=== PATIENT | male | born 1950 | race American Indian/Alaskan Native ===

== ENCOUNTER 2017-10-27 22:01 | Emergency (ER) | payer MEDICARE ==
[2017-10-27 23:08] VITALS: BMI 28.5
[2017-10-27 23:19] VITALS: BP 126/79; PULSE 94; RESP 18; TEMP 97.9; O2SAT 98
--- NOTE | 2017-10-28 00:06 | ED PDOC ---
Arrival/HPI - General Chief Complaint: ENT Problem Time Seen by Provider: 10/27/17 23:28 Historian: Patient - History of Present Illness Narrative History of Present Illness (Text): 10/28/17 00:01 Tobi Thayer is a 66 year old male, whose past medical history includes hypertension, Hepatitis C, and CHF, who presents to the Emergency department complaining of epistaxis. Patient states he had an episode of epistaxis while driving in his car tonight and notes this is the 3rd episode he has experienced this week. Patient denies any rhinorrhea, fever, chills, chest pain, shortness of breath, nausea, vomiting, headache, dizziness, or any other complaints. Symptom Onset: Gradual Symptom Course: Unchanged Activities at Onset: Light Context: Home Past Medical History - Provider Review Nursing Documentation Reviewed: Yes - Tetanus Immunization Tetanus Immunization: Unknown - Cardiac Hx Hypertension: Yes - Pulmonary Hx Respiratory Disorders: No - Neurological Hx Neurological Disorder: No - HEENT Hx HEENT Disorder: No - Renal Hx Renal Disorder: No - Endocrine/Metabolic Hx Endocrine Disorders: No - Hematological/Oncological Hx Hepatitis C: Yes - Integumentary Hx Dermatological Disorder: No - Musculoskeletal/Rheumatological Hx Musculoskeletal Disorders: No Hx Arthritis: No - Gastrointestinal Hx Gastrointestinal Disorders: No - Genitourinary/Gynecological Hx Genitourinary Disorders: No - Psychiatric Hx Psychophysiologic Disorder: No Hx Substance Use: No - Anesthesia Hx Anesthesia: No - Suicidal Assessment Feels Threatened In Home Enviroment: No Family/Social History - Physician Review Nursing Documentation Reviewed: Yes Family/Social History: Unknown Family HX Smoking Status: Former Smoker Hx Alcohol Use: No Hx Substance Use: No Allergies/Home Meds Allergies/Adverse Reactions: Allergies No Known Allergies Allergy (Verified 10/27/17 23:08) Home Medications: Home Meds Medication Instructions Recorded Confirmed Enalapril Maleate [Enalapril] 10 mg PO Q12H 12/14/14 10/27/17 Furosemide [Lasix] 20 mg PO DAILY 12/14/14 10/27/17 Metoprolol Succinate 100 mg PO DAILY 12/14/14 10/27/17 Rosuvastatin Calcium [Crestor] 10 mg PO DAILY 12/14/14 10/27/17 Review of Systems - Physician Review All systems were reviewed & negative as marked: Yes - Review of Systems Constitutional: Normal. absent: Fevers Eyes: Normal ENT: Epistaxis Respiratory: Normal. absent: SOB, Cough Cardiovascular: Normal. absent: Chest Pain Gastrointestinal: Normal. absent: Abdominal Pain, Diarrhea, Nausea, Vomiting Genitourinary Male: Normal. absent: Dysuria, Frequency, Hematuria, Urinary Output Changes Musculoskeletal: Normal. absent: Back Pain, Neck Pain Skin: Normal. absent: Rash Neurological: Normal. absent: Headache, Dizziness Endocrine: Normal Hemo/Lymphatic: Normal Psychiatric: Normal Physical Exam Vital Signs Reviewed: Yes Vital Signs Temp Pulse Resp BP Pulse Ox 10/27/17 23:19 97.9 F 94 H 18 126/79 98 Temperature: Afebrile Blood Pressure: Normal Pulse: Regular Respiratory Rate: Normal Appearance: Positive for: Well-Appearing, Non-Toxic, Comfortable Pain Distress: None Mental Status: Positive for: Alert and Oriented X 3 - Systems Exam Head: Present: Atraumatic, Normocephalic Pupils: Present: PERRL Extroacular Muscles: Present: EOMI Conjunctiva: Present: Normal Mouth: Present: Moist Mucous Membranes Nose (External): Present: Atraumatic Nose (Internal): No: No Active Bleeding Neck: Present: Normal Range of Motion Respiratory/Chest: Present: Clear to Auscultation, Good Air Exchange. No: Respiratory Distress, Accessory Muscle Use Cardiovascular: Present: Regular Rate and Rhythm, Normal S1, S2. No: Murmurs Abdomen: Present: Normal Bowel Sounds. No: Tenderness, Distention, Peritoneal Signs Back: Present: Normal Inspection Upper Extremity: Present: Normal Inspection. No: Cyanosis, Edema Lower Extremity: Present: Normal Inspection. No: Edema Neurological: Present: GCS=15, CN II-XII Intact, Speech Normal Skin: Present: Warm, Dry, Normal Color. No: Rashes Psychiatric: Present: Alert, Oriented x 3, Normal Insight, Normal Concentration Medical Decision Making ED Course and Treatment: 10/28/17 00:01 Impression: 66 year old male complaining of epistaxis tonight. Differential Diagnosis included but are not limited to: epistaxis Plan: -- Labs -- Silver Nitrate Cautery -- Reassess and disposition Progress Notes: 10/28/17 01:19 PROCEDURE: EPISTAXIS MANAGEMENT Performed by the emergency provider Consent: Informed consent was obtained after discussion of the risks, benefits, and alternatives to the procedure. Timeout: A timeout to verify the correct patient, procedure, and site was performed immediately prior to the procedure. Indication: Nasal bleeding control Location: left naris Bleeding Source: ANTERIOR Cautery: Silver nitrate Post-procedure: Good hemostasis. The patient was observed following procedure and no repeat episode of bleeding was noted. Patient tolerated the procedure well with no immediate complications. 10/28/17 01:45 On reevaluation the patient feels better and is in no acute distress. I have discussed the results and plan with the patient, who expresses understanding. Patient given the opportunity to ask question, all questions were answered and there is agreement with the plan to discharge the patient home. Patient is stable for discharge. Patient was instructed to follow up with physician/clinic in 1-2 days or return if symptoms persist/worsen or new concerning symptoms arise. - Lab Interpretations Lab Results: 10/28/17 01:13 Lab Results 10/28/17 01:13: PT 11.8, INR 1.03, APTT 27.2 10/28/17 01:13: WBC 8.3 D, RBC 3.41 L, Hgb 11.4 L, Hct 33.7 L, MCV 98.8, MCH 33.4, MCHC 33.8, RDW 13.2, Plt Count 204, MPV 9.5, Gran % 57.9, Lymph % (Auto) 34.5, Crisp % (Auto) 5.8, Eos % (Auto) 1.6, Baso % (Auto) 0.2, Gran # 4.83, Lymph # 2.9, Crisp # 0.5, Eos # 0.1, Baso # 0.02 I have reviewed the lab results: Yes - Medication Orders Current Medication Orders: Discontinued Medications Silver Nitrate (Silver Nitrate Topical Stick) 1 swa TOP ONCE ONE Stop: 10/28/17 00:58 Last Admin: 10/28/17 01:19 Dose: 1 swa - Scribe Statement The provider has reviewed the documentation as recorded by the Scribmaverick Cordero All medical record entries made by the Scribe were at my direction and personally dictated by me. I have reviewed the chart and agree that the record accurately reflects my personal performance of the history, physical exam, medical decision making, and the department course for this patient. I have also personally directed, reviewed, and agree with the discharge instructions and disposition. Disposition/Present on Arrival - Present on Arrival Any Indicators Present on Arrival: No History of DVT/PE: No History of Uncontrolled Diabetes: No Urinary Catheter: No History of Decub. Ulcer: No History Surgical Site Infection Following: None - Disposition Have Diagnosis and Disposition been Completed?: Yes Diagnosis: Epistaxis Disposition: HOME/ ROUTINE Disposition Time: 01:45 Condition: GOOD Discharge Instructions (ExitCare): Nosebleed (ED) Referrals: Anmol Montanez MD [Primary Care Provider] - Follow up with primary Galdino Duffy DO [Staff Provider] - Follow up with primary Forms: [employer] ([place])
[2017-10-28] MEDS ORDERED: Silver Nitrate Topical - Stick TOP ONE (00:57)
[2017-10-28 01:23] LABS: BASO # 0.02 K/mm3 (0.0-2.0); BASO % 0.2 % (0.0-3.0); EOS # 0.1 (0.0-0.7); EOS % 1.6 % (1.5-5.0); GRAN # 4.83 (1.4-6.5); GRAN % 57.9 % (50.0-68.0); HEMOGLOBIN 11.4 g/dL (14.0-18.0); LYMPH # 2.9 (1.2-3.4); LYMPH % 34.5 % (22.0-35.0); MEAN CELL VOLUME 98.8 fl (80.0-105.0); MEAN CORPUSCULAR HEMOGLOBIN 33.4 pg (25.0-35.0); MEAN CORPUSCULAR HGB CONC 33.8 g/dl (31.0-37.0); MEAN PLATELET VOLUME 9.5 fl (7.0-11.0); MONO # 0.5 (0.1-0.6); MONO % 5.8 % (1.0-6.0); RBC 3.41 10^6/uL (3.5-6.1); RED CELL DISTRIBUTION WIDTH 13.2 % (11.5-14.5); WHITE BLOOD COUNT 8.3 10^3/ul (4.5-11.0)
[2017-10-28 01:34] LABS: INR 1.03 (0.93-1.08); PARTIAL THROMBOPLASTIN TIME 27.2 Seconds (25.1-36.5); PROTHROMBIN TIME 11.8 SECONDS (9.4-12.5)
== END 2017-10-28 01:55 | disposition home or self-care (01) ==
LOC: ED 22:01
DX: R04.0 Epistaxis (principal); I10 Essential (primary) hypertension; I50.9 Heart failure, unspecified; Z87.891 Personal history of nicotine dependence

== ENCOUNTER 2018-03-21 00:58 | Observation (INO) | payer MEDICARE ==
[2018-03-21 00:58] VITALS: BMI 28.5
--- NOTE | 2018-03-21 02:49 | ED PDOC ---
Arrival/HPI - General Chief Complaint: Lower Extremity Problem/Injury Time Seen by Provider: 03/21/18 02:44 Historian: Patient - History of Present Illness Narrative History of Present Illness (Text): 03/21/18 02:48 Tobi Thayer is a 67 year old male, whose past medical history includes hypertension, Hepatitis C, and CHF, who presents to the Emergency department complaining of bilateral ankle swelling ,occassional shortness of breath,and vague chest discomfort.Patient denies any fever, chills, nausea, vomiting, diarrhea, back pain, neck pain, headache, dizziness, or any other complaints.No hx. of any trauma. Symptom Onset: Gradual Symptom Course: Unchanged Activities at Onset: Light Context: Home Past Medical History - Provider Review Nursing Documentation Reviewed: Yes - Infectious Disease Hx of Infectious Diseases: None - Tetanus Immunization Tetanus Immunization: Unknown - Cardiac Hx Hypertension: Yes - Pulmonary Hx Respiratory Disorders: No - Neurological Hx Neurological Disorder: No - HEENT Hx HEENT Disorder: No - Renal Hx Renal Disorder: No - Endocrine/Metabolic Hx Endocrine Disorders: No - Hematological/Oncological Hx Hepatitis C: Yes - Integumentary Hx Dermatological Disorder: No - Musculoskeletal/Rheumatological Hx Musculoskeletal Disorders: No Hx Arthritis: No - Gastrointestinal Hx Gastrointestinal Disorders: No - Genitourinary/Gynecological Hx Genitourinary Disorders: No - Psychiatric Hx Psychophysiologic Disorder: No Hx Substance Use: No - Anesthesia Hx Anesthesia: No - Suicidal Assessment Feels Threatened In Home Enviroment: No Family/Social History - Physician Review Nursing Documentation Reviewed: Yes Family/Social History: Unknown Family HX Smoking Status: Former Smoker Hx Alcohol Use: No Hx Substance Use: No Allergies/Home Meds Allergies/Adverse Reactions: Allergies No Known Allergies Allergy (Verified 03/21/18 01:58) Home Medications: Home Meds Medication Instructions Recorded Confirmed Enalapril Maleate [Enalapril] 10 mg PO Q12H 12/14/14 03/22/18 Furosemide [Lasix] 40 mg PO DAILY 12/14/14 03/22/18 Methadone [Methadone HCl] 10 mg PO DAILY 03/21/18 03/22/18 Metoprolol Succinate [Toprol Xl] 100 mg PO DAILY 03/21/18 03/22/18 oxyCODONE [oxyCODONE Immediate 30 mg PO TID 06/15/18 06/16/18 Release Tab] Atorvastatin [Lipitor] 40 mg PO DAILY 03/22/18 03/22/18 Review of Systems - Physician Review All systems were reviewed & negative as marked: Yes - Review of Systems Constitutional: Normal. absent: Fevers Eyes: Normal ENT: Normal Respiratory: SOB. absent: Cough Cardiovascular: Chest Pain Gastrointestinal: Normal. absent: Abdominal Pain, Diarrhea, Nausea, Vomiting Genitourinary Male: Normal. absent: Dysuria, Frequency, Hematuria, Urinary Output Changes Musculoskeletal: Other (+bilateral ankle swelling). absent: Back Pain, Neck Pain Skin: Normal. absent: Rash Neurological: Normal. absent: Headache, Dizziness Endocrine: Normal Hemo/Lymphatic: Normal Psychiatric: Normal Physical Exam Vital Signs Reviewed: Yes Vital Signs Temp Pulse Resp BP Pulse Ox 03/21/18 09:30 109 H 03/21/18 09:27 98.0 F 108 H 15 95 03/21/18 09:26 98.0 F 108 H 15 95 03/21/18 07:47 150/88 03/21/18 07:40 70 150/88 03/21/18 07:29 98.8 F 98 H 17 150/89 97 03/21/18 06:00 88 18 131/75 99 03/21/18 04:42 95 H 18 136/72 97 03/21/18 01:55 112 H 18 133/73 95 Temperature: Afebrile Blood Pressure: Normal Pulse: Regular Respiratory Rate: Normal Appearance: Positive for: Well-Appearing, Non-Toxic, Comfortable Pain Distress: None Mental Status: Positive for: Alert and Oriented X 3 - Systems Exam Head: Present: Atraumatic, Normocephalic Pupils: Present: PERRL Extroacular Muscles: Present: EOMI Conjunctiva: Present: Normal Mouth: Present: Moist Mucous Membranes Neck: Present: Normal Range of Motion Respiratory/Chest: Present: Clear to Auscultation, Good Air Exchange. No: Respiratory Distress, Accessory Muscle Use Cardiovascular: Present: Regular Rate and Rhythm, Normal S1, S2. No: Murmurs Abdomen: No: Tenderness, Distention, Peritoneal Signs Back: Present: Normal Inspection Upper Extremity: Present: Normal Inspection. No: Cyanosis, Edema Lower Extremity: Present: Edema (Mild non tender bilateral ankle edema), NORMAL PULSES, Normal ROM, Neurovascularly Intact, Capillary Refill < 2 s. No: Gemma' s Sign, Tenderness, Swelling, Erythema, Deformity, Temperature Abnormalties Neurological: Present: GCS=15, CN II-XII Intact, Speech Normal, Motor Func Grossly Intact, Normal Sensory Function Skin: Present: Warm, Dry, Normal Color. No: Rashes Psychiatric: Present: Alert, Oriented x 3, Normal Insight, Normal Concentration Medical Decision Making ED Course and Treatment: 03/21/18 02:48 Impression: 67 year old male complaining of shortness of breath, vague chest discomfort, and bilateral ankle swelling. Plan: -- EKG -- Chest X-ray -- Labs, cardiac enzymes, BNP -- Reassess and disposition Prior Visits: Notes and results from previous visits were reviewed. Progress Notes: Reviewed EKG, NSR at [address] Non-specific ST/T wave changes. 03/21/18 05:[address] Way, who is aware and agrees with plan. Accepts pt in to his service. Pt will go to Telemetry observation for chest pain. 03/21/18 06:00 Chest X-ray reviewed, shows no acute processes. - Lab Interpretations Lab Results: 03/21/18 04:20 03/21/18 04:20 Lab Results 03/21/18 04:20: Hemoglobin A1c 4.9 03/21/18 04:20: WBC 8.7, RBC 3.68, Hgb 12.1 L, Hct 36.5 L, MCV 99.2, MCH 32.9, MCHC 33.2, RDW 12.8, Plt Count 219, MPV 9.0 03/21/18 04:20: Sodium 142, Potassium 5.3 H, Chloride 103, Carbon Dioxide 25, Anion Gap 18, BUN 35 H, Creatinine 1.5, Est GFR ( Amer) 57, Est GFR (Non- Af Amer) 47, Random Glucose 115 H, Calcium 9.9, Total Bilirubin 0.4, AST 28, ALT 26, Alkaline Phosphatase 49, Lactate Dehydrogenase 556, Total Creatine Kinase 189, Troponin I 0.01 D, NT-Pro-B Natriuret Pep 94.2, Total Protein 8.4 H , Albumin 4.7, Globulin 3.7, Albumin/Globulin Ratio 1.3 03/21/18 04:20: PT 10.8, INR 0.95, APTT 26.5 - RAD Interpretation Radiology Orders: 03/21/18 02:50 CHEST PORTABLE [RAD] Stat - Medication Orders Current Medication Orders: Discontinued Medications Atorvastatin Calcium (Lipitor) 40 mg PO DAILY [facility] Last Admin: 03/22/18 10:11 Dose: 40 mg Furosemide (Lasix) 40 mg IVP STAT STA Stop: 03/21/18 07:26 Last Admin: 03/21/18 07:47 Dose: 40 mg MAR Blood Pressure Document 03/21/18 07:47 [email or web address] (Rec: 03/21/18 07:47 [email or web address] [id number]) Blood Pressure Blood Pressure (100/60-150/90) 150/88 IVP Administration Document 03/21/18 07:47 [email or web address] (Rec: 03/21/18 07:47 [email or web address] [id number]) Charges for Administration # of IVP Administrations 1 Furosemide (Lasix) 40 mg IVP DAILY [facility] Last Admin: 03/22/18 10:10 Dose: 40 mg MAR Blood Pressure Document 03/22/18 10:10 HUAN (Rec: 03/22/18 10:10 HUAN [id number] [id number]) Blood Pressure Blood Pressure (100/60-150/90) 126/71 IVP Administration Document 03/22/18 10:10 HUAN (Rec: 03/22/18 10:10 HUAN [id number] [id number]) Charges for Administration # of IVP Administrations 1 Lisinopril (Zestril) 10 mg PO Q12H [facility] Last Admin: 03/22/18 08:36 Dose: 10 mg MAR Pulse and Blood Pressure Document 03/22/18 08:36 HUAN (Rec: 03/22/18 08:36 HUAN [id number]) Pulse Pulse Rate (60-90) 99 Blood Pressure Blood Pressure (100/60-150/90) 114/70 Methadone HCl (Methadone) 10 mg PO DAILY [facility] Last Admin: 03/22/18 10:11 Dose: 10 mg MAR Pain Assessment Document 03/22/18 10:11 HUAN (Rec: 03/22/18 10:11 HUAN [id number]) Pain Reassessment Is this a pain reassessment? Yes Sleep Is patient sleeping during reassessment? No Presence of Pain Presence of Pain Yes Pain Scale Used Pain Scale Used Numeric Location Pain Location Body Site Back Description Description Chronic Intensity of Pain at present 8 Pain Behavior Guarding Aggravating Factors Contant Alleviating Factors/Management Medication Techniques Alleviating Factors Medication Re-Assess: [facility] [place] Pain Assessment Document 03/22/18 11:11 HUAN (Rec: 03/22/18 12:50 HUAN [id number]) Pain Reassessment Is this a pain reassessment? Yes Sleep Is patient sleeping during reassessment? No Presence of Pain Presence of Pain No Metoprolol Succinate (Toprol Xl) 100 mg PO DAILY [facility] Last Admin: 03/22/18 10:11 Dose: 100 mg [facility] [place] Pulse and Blood Pressure Document 03/22/18 10:11 HUAN (Rec: 03/22/18 10:11 HUAN [id number]) Pulse Pulse Rate (60-90) 95 Blood Pressure Blood Pressure (100/60-150/90) 126/71 Oxycodone HCl (Oxycodone Immediate Release Tab) 30 mg PO TID [facility] Last Admin: 03/22/18 10:10 Dose: 30 mg [facility] [place] Pain Assessment Document 03/22/18 10:10 HUAN (Rec: 03/22/18 10:10 HUAN [id number]) Pain Reassessment Is this a pain reassessment? Yes Sleep Is patient sleeping during reassessment? No Presence of Pain Presence of Pain Yes Pain Scale Used Pain Scale Used Numeric Location Pain Location Body Site Back Description Description Chronic Intensity of Pain at present 8 Pain Behavior Guarding Aggravating Factors Contant Alleviating Factors/Management Medication Techniques Alleviating Factors Medication Re-Assess: [facility] [place] Pain Assessment Document 03/22/18 11:10 HUAN (Rec: 03/22/18 12:04 HUAN [id number]) Pain Reassessment Is this a pain reassessment? Yes Sleep Is patient sleeping during reassessment? No Presence of Pain Presence of Pain No Sodium Polystyrene Sulfonate (Kayexalate Susp) 15 gm PO ONCE ONE Stop: 03/22/18 11:49 Last Admin: 03/22/18 12:05 Dose: 15 gm - Scribe Statement The provider has reviewed the documentation as recorded by the Yonny Cordero Provider Scribe Attestation: All medical record entries made by the Scribe were at my direction and personally dictated by me. I have reviewed the chart and agree that the record accurately reflects my personal performance of the history, physical exam, medical decision making, and the department course for this patient. I have also personally directed, reviewed, and agree with the discharge instructions and disposition. Disposition/Present on Arrival - Present on Arrival Any Indicators Present on Arrival: No History of DVT/PE: No History of Uncontrolled Diabetes: No Urinary Catheter: No History of Decub. Ulcer: No History Surgical Site Infection Following: None - Disposition Have Diagnosis and Disposition been Completed?: Yes Diagnosis: Chest pain, Ankle edema Disposition: HOSPITALIZED Disposition Time: 06:15 Condition: STABLE
[2018-03-21 04:39] LABS: HEMOGLOBIN 12.1 g/dL (14.0-18.0); MEAN CELL VOLUME 99.2 fl (80.0-105.0); MEAN CORPUSCULAR HEMOGLOBIN 32.9 pg (25.0-35.0); MEAN CORPUSCULAR HGB CONC 33.2 g/dl (31.0-37.0); RBC 3.68 10^6/uL (3.5-6.1); RED CELL DISTRIBUTION WIDTH 12.8 % (11.5-14.5); WHITE BLOOD COUNT 8.7 10^3/ul (4.5-11.0)
[2018-03-21 04:47] LABS: ALBUMIN 4.7 g/dL (3.0-4.8); CALCIUM 9.9 mg/dL (8.4-10.5)
[2018-03-21 04:48] LABS: ALB/GLOB RATIO 1.3 (1.1-1.8)
[2018-03-21 04:51] LABS: INR 0.95 (0.93-1.08); PARTIAL THROMBOPLASTIN TIME 26.5 Seconds (25.1-36.5); PROTHROMBIN TIME 10.8 SECONDS (9.4-12.5)
[2018-03-21 04:59] LABS: B-TYPE NATRIURETIC PEPTIDE 94.2 pg/mL (0-450); TROPONIN I 0.01 ng/mL
[2018-03-21 09:16] LABS: HEMOGLOBIN 12.9 g/dL (14.0-18.0); MEAN CORPUSCULAR HEMOGLOBIN 32.9 pg (25.0-35.0); MEAN CORPUSCULAR HGB CONC 33.6 g/dl (31.0-37.0); MEAN PLATELET VOLUME 9.5 fl (7.0-11.0); RBC 3.92 10^6/uL (3.5-6.1); RED CELL DISTRIBUTION WIDTH 12.8 % (11.5-14.5)
--- NOTE | 2018-03-21 09:25 | CON ---
DATE: 03/21/2018 PULMONARY CONSULTATION REASON FOR CONSULTATION: Shortness of breath. REFERRING PHYSICIAN: Steve Way DO HISTORY OF PRESENT ILLNESS: The patient is a 67-year-old male, with past medical history significant for hypertension, hepatitis C, who presents to [facility] with main complaints of intermittent dyspnea on exertion, and intermittent chest discomfort over the past 2 weeks. The patient is not short of breath at rest. There is no history of cough or sputum production. There is no history of coughing up of blood. There is no history of chest discomfort worsening with deep respirations. There is no history of temperatures, chills or infectious exposure. There is no history of night sweats, weight loss or appetite change prior to the above events. No history of leg or calf pains. However, he does state that his ankles were swollen over the past few weeks. No history of syncope or diaphoresis. No history of recent travel or trauma. REVIEW OF SYSTEMS: No history of nausea, vomiting or diarrhea. No acute urinary symptoms. No new neurologic or musculoskeletal complaints. Rest of the review of systems negative. ALLERGIES: NO KNOWN ALLERGIES. SOCIAL HISTORY: Positive for former tobacco usage - stopped 20 years ago. No alcohol. FAMILY HISTORY: No inheritable diseases. HOME MEDICATIONS: Include Crestor, metoprolol, enalapril, Lasix. PHYSICAL EXAMINATION GENERAL: The patient appears comfortable this morning. He is not short of breath at rest. He is not using accessory muscles for breathing. VITAL SIGNS: Temperature is 98.8, pulse 70, respirations 17, blood pressure 150/88. Oxygen saturation on room air is 97%-99%. HEENT: Normocephalic, atraumatic. No JVD. CARDIOVASCULAR: Systolic ejection murmur at the lower left sternal border. No S3 gallop. LUNGS: Clear bilaterally. EXTREMITIES: Minimal edema is noted. No cyanosis or clubbing. Calves are nontender to palpation. GI: Abdomen is soft and mildly distended. The abdomen is nontender to palpation. Bowel sounds are positive. SKIN: No acute rash. NEUROLOGIC: Limited at the present time. PERTINENT LABORATORY DATA: Chest x-ray was done yesterday and reviewed. There is minimal scarring noted at the lung bases. Otherwise, I do not appreciate any new or significant changes. Official result is pending. CBC: White count 8.7, hemoglobin 12.1, hematocrit 36.5, platelets of 219,000. Complete metabolic profile: Potassium 5.3, BUN 35, glucose 115. Rest of the metabolic profile is within normal limits. IMPRESSION: 1. Intermittent dyspnea on exertion. 2. Intermittent chest discomfort. 3. Hypertension. 4. Mild anemia. PLAN: The patient presents to [facility] with main complaints of intermittent dyspnea on exertion, and intermittent chest discomfort for the past 2 weeks. He offers no other pulmonary symptoms. In addition to the above, he does state that his ankles have been swollen over the past 2 weeks. He was thus admitted for additional evaluation. I did review the chest x-ray as above. There is minimal scarring at the lung bases, but I do not appreciate any new or significant changes. Official results are pending. On physical exam, his lungs are clear. Oxygen saturation on room air is 97%-99%. I would certainly proceed with echocardiography - to rule out underlying pulmonary hypertension. Cardiology evaluation with Dr. Holloway has been ordered. Repeat a.m. labs are ordered. The patient does feel better and is clinically improved this morning. Additional pulmonary intervention will be based on the above results, as well as the clinical status of the patient. I did discuss the above with Dr. Way at length. Thank you very much for this pulmonary consultation. Colby Shay MD [facility]
[2018-03-21 09:26] LABS: ALB/GLOB RATIO 1.3 (1.1-1.8); ALT/SGPT 23 U/L (7-56); AST/SGOT 31 U/L (17-59); BLOOD UREA NITROGEN 34 mg/dL (7-21); CALCIUM 10.4 mg/dL (8.4-10.5); GFR AFRICAN-AMERICAN > 60; GFR NON-AFRICAN AMERICAN 51
--- NOTE | 2018-03-21 09:37 | RAD ---
HISTORY: medical clearance COMPARISON: 12/14/2014 FINDINGS: LUNGS: No active pulmonary disease. PLEURA: No significant pleural effusion identified, no pneumothorax apparent. CARDIOVASCULAR: Normal. OSSEOUS STRUCTURES: No significant abnormalities. VISUALIZED UPPER ABDOMEN: Normal. OTHER FINDINGS: None. IMPRESSION: No active disease.
[2018-03-21 09:38] LABS: B-TYPE NATRIURETIC PEPTIDE 91.7 pg/mL (0-450); TROPONIN I 0.01 ng/mL
[2018-03-21] MEDS: Metoprolol Succinate 100 mg XL Tab PO SCH (10:09)
[2018-03-21] MEDS: oxyCODONE 30 mg Immediate Release Tab PO SCH ×3 (14:06→20:08)
--- NOTE | 2018-03-21 15:24 | CARD ---
APPROVED REPORT EXAM: Two-dimensional and M-mode echocardiogram with Doppler and color Doppler. INDICATION Dyspnea 2D DIMENSIONS Left Atrium (2D)3.8 (1.6-4.0cm)IVSd1.2 (0.7-1.1cm) LVDd4.5 (3.9-5.9cm)PWd1.4 (0.7-1.1cm) LVDs3.8 (2.5-4.0cm)FS (%) 15.2 % LVEF (%)32.2 (>50%) M-Mode DIMENSIONS Aortic Root4.00 (2.2-3.7cm)Aortic Cusp Exc.1.90 (1.5-2.0cm) Aortic Valve AoV Peak Rrmwvspg660.0cm/Dionna Peak GR.6mmHg Mitral Valve MV E Uomdjhob45.2cm/sMV A Nfxldgfb11.3cm/sE/A ratio0.4 TDI Lateral E' Peak V7.21cm/sMedial E' Peak V4.39cm/sE/Lateral E'6.0 E/Medial E'9.8 Pulmonary Valve PV Peak Ieqyllpg67.9cm/sPV Peak Grad.2mmHg Tricuspid Valve TR Peak Kpstukbf976gs/sRAP [id number] Peak Gr.18mmHg [id number] LEFT VENTRICLE The left ventricle is normal size. There is normal left ventricular wall thickness. The systolic function is severely impaired. Septal hypokinesis Transmitral Doppler flow pattern is Grade I-abnormal relaxation pattern. RIGHT VENTRICLE The right ventricle is normal size. There is normal right ventricular wall thickness. The right ventricular systolic function is normal. ATRIA The left atrium size is normal. The right atrium size is normal. AORTIC VALVE The aortic valve is mildly thickened. There is mild to moderate aortic regurgitation. There is no aortic valvular stenosis. MITRAL VALVE The mitral valve is mildly thickened. Mitral regurgitation is trace. TRICUSPID VALVE The tricuspid valve is normal in structure. There is no tricuspid valve regurgitation noted. PULMONIC VALVE The pulmonary valve is normal in structure. There is trace pulmonic valvular regurgitation. GREAT VESSELS The aortic root is mildly enlarged. PERICARDIAL EFFUSION There is a small loculated anterior pericardial effusion. <Conclusion> The left ventricle is normal size. There is normal left ventricular wall thickness. The systolic function is severely impaired. Septal hypokinesis Transmitral Doppler flow pattern is Grade I-abnormal relaxation pattern. There is mild to moderate aortic regurgitation. The aortic root is mildly enlarged.
--- NOTE | 2018-03-21 19:15 | HP ---
HISTORY OF PRESENT ILLNESS: I was called down to the ER to admit Tobi. He tells me he is very short of breath, CHF. He comes in not feeling well. He is a 67-year-old -[place] man who comes to Emergency Room with bilateral ankle swelling, shortness of breath, vague chest discomfort. He has had this before. He tells me he has got past medical history of hypertension, CHF, hepatitis C. He has swelling of his ankles. He has hypertension in the family. He is a former smoker. No alcohol. No drugs. He is on enalapril, Lasix, metoprolol and Crestor. REVIEW OF SYSTEMS: Sitting up in bed, he is feeling okay. No fevers. No acute vision or hearing changes. No sore throat. He is short of breath. No cough. He is also having chest pain, no palpitations. It comes and goes, it is on the left side. He has had no abdominal pain, nausea, vomiting, constipation or problems urinating. He has bilateral ankle swelling he takes Lasix at home but he did not the double up, he came right into the Emergency Room. He was short of breath with it. He has got no rashes that he knows of. No headache or dizziness. He is not anxious or nervous, not depressed. PHYSICAL EXAMINATION: VITAL SIGNS: He has a 112 pulse, 18 respiratory rate, 133/73 blood pressure, 95% O2 saturation. GENERAL: He is well appearing, comfortable, in bed at this time. He is alert and oriented x3. HEENT: His head is atraumatic, normocephalic. Extraocular muscles are intact. Pupils react to light. Throat is moist. NECK: Supple. HEART: Regular rate. Normal S1, S2. LUNGS: Decreased breath sounds bilaterally, but clear to auscultation. No wheezes, no rhonchi, no rales. ABDOMEN: Abdomen: Soft, nontender. Positive bowel sounds. EXTREMITIES: Does have +2/4 pitting edema in the ankles. NEUROLOGICAL: GCS is 15. Cranial nerves II-XII grossly intact. Speech is normal. He is alert and oriented x3, comfortable. Thyroid midline. No palpable appreciable lymphadenopathy from what I can do. SKIN: Warm and dry. No apparent rashes or ulcers appreciated from what I could seen. LABORATORY DATA: He has an 8.7 white count, 12.1 hemoglobin, 36.5 hematocrit with 293 platelets. He has an INR 0.95. He has a 142 sodium, potassium is 5.3, we will check it this morning. BUN 35, creatinine 1.5. Sugar is 150, calcium is 9.9, total bili is 0.4, AST is 20, ALT is 26, alkaline phosphatase 49. Lactate dehydrogenase is 556, total creatine kinase is 189, troponin I is 0.01. BNP is 94.2, total protein is 8.4, albumin is 4.7. He is going to have consult with Cardiology and Pulmonology. I will give him a dose of Lasix 40, we will see if he gets some fluid off his ankle. We will put him back on his metoprolol and Zestril and his Lipitor and also, he is going to get a 2-D echo. Gave him some oxygen, checking his troponins. Get him out of bed to chair and hopefully in next 24 hours, we will get him discharged. He is in Observation . Steve Way DO MTDVikki
--- NOTE | 2018-03-21 21:32 | CARD ---
APPROVED REPORT EKG Measurement Heart [id number] <Conclusion> Normal sinus rhythm Nonspecific ST abnormality Abnormal ECG
--- NOTE | 2018-03-21 22:50 | CON ---
DATE: 03/21/2018 CARDIOLOGY CONSULTATION HISTORY OF PRESENT ILLNESS: The patient is a 67-year-old male who presents with pedal edema as well as dyspnea. The patient's past medical history is notable for a dilated cardiomyopathy documented in 2014 with an echocardiogram and a stress test, which showed an ejection fraction of 30%. The patient denies recent smoking, he stopped 20 years ago. No previous history of myocardial infarction. He does suffer from hypertension, but no diabetes mellitus. SOCIAL HISTORY: The patient does not smoke. Does not drink alcohol. He is on oxycodone for chronic back pain. He is currently also on methadone for questionable reasons. REVIEW OF SYSTEMS: A 14-point review of systems reveals no additional symptoms other than the one mentioned above. PHYSICAL EXAMINATION: VITAL SIGNS: Blood pressure is 145/67, heart rate is in the 90s. NECK: Negative JVD. LUNGS: Without rales. HEART: Reveals S1, S2. EXTREMITIES: With trace edema. EKG shows normal sinus rhythm with nonspecific ST-T changes. LABORATORY DATA: Hemoglobin is 12.6. Chemistries, BUN and creatinine are 34 and 1.4. Troponins are negative x2. ProBNP is within normal limits. IMPRESSION: 1. Dilated cardiomyopathy. 2. Congestive heart failure. 3. Hypertension. 4. Borderline diabetes mellitus. 5. Pedal edema. Given these findings, we will give him IV Lasix today and daily. I agree with his lisinopril. We will obtain an echocardiogram. Bright Holloway MD
[2018-03-22 08:00] LABS: MEAN CELL VOLUME 97.2 fl (80.0-105.0); MEAN CORPUSCULAR HEMOGLOBIN 33.3 pg (25.0-35.0); MEAN CORPUSCULAR HGB CONC 34.3 g/dl (31.0-37.0); MEAN PLATELET VOLUME 9.4 fl (7.0-11.0); RBC 3.9 10^6/uL (3.5-6.1); RED CELL DISTRIBUTION WIDTH 12.6 % (11.5-14.5); WHITE BLOOD COUNT 10.2 10^3/ul (4.5-11.0)
[2018-03-22 08:11] LABS: ALB/GLOB RATIO 1.2 (1.1-1.8); ALBUMIN 4.7 g/dL (3.0-4.8); ALT/SGPT 23 U/L (7-56); AST/SGOT 25 U/L (17-59); BLOOD UREA NITROGEN 37 mg/dL (7-21); CALCIUM 9.9 mg/dL (8.4-10.5); GFR AFRICAN-AMERICAN > 60; GFR NON-AFRICAN AMERICAN 51
[2018-03-22] MEDS: oxyCODONE 30 mg Immediate Release Tab PO SCH (10:10)
[2018-03-22] MEDS: Metoprolol Succinate 100 mg XL Tab PO SCH (10:11)
[2018-03-22] MEDS ORDERED: Sod Polystyrene Sulf 15 gm/60 ml Susp PO ONE (11:48)
[2018-03-22 13:12] VITALS: O2SAT 96
--- NOTE | 2018-03-22 14:03 | PN ---
DATE: 03/22/2018 PULMONARY PROGRESS NOTE SUBJECTIVE: Mr. Thayer is feeling quite well today with no shortness of breath or chest pain. It comes to my attention that the patient is being discharged today. The order is already written. The patient states that he is markedly improved from the previous day. The history has been reviewed and the case discussed with the patient. He has no complaints at this time. PHYSICAL EXAMINATION: VITAL SIGNS: Stable. He is afebrile. Blood pressure 120/80, heart rate 80, respiratory rate 16. NECK: Supple. No JVD. No lymphadenopathy. CARDIOVASCULAR: Regular rhythm. S1, S2. No gallop, but there is a systolic ejection murmur at the lower left sternal border. LUNGS: Clear to percussion and auscultation. ABDOMEN: Soft. Bowel sounds normoactive. EXTREMITIES: Reveal no clubbing, cyanosis or edema. There is no Homans' sign. SKIN: Shows no rashes or excoriation. NEUROLOGIC: Shows no focal findings. LABORATORY DATA: Chest x-ray shows no significant abnormalities. No acute problems noted. The white blood cell count is normal with a normal platelet count. Echocardiogram has been reviewed. There is no evidence of pulmonary hypertension. Consultation of Dr. Bright Holloway has been reviewed. The patient has significant cardiomyopathy. This is what accounted for the patient's shortness of breath. There is no intrinsic pulmonary disease. CLINICAL IMPRESSION: 1. Dyspnea on exertion. 2. Cardiomyopathy. 3. Intermittent chest pain. 4. Anemia. 5. Hypertension. PLAN: The patient will be followed by Dr. Way and Dr. Holloway as an outpatient. We strongly suggest that the patient have a pulmonary function study as an outpatient since he is being discharged imminently. There are no acute pulmonary findings at this time. Should the patient's shortness of breath failed to resolve with treatment of the cardiomyopathy, further pulmonary intervention would be indicated. Please feel free to contact Dr. Shay or myself if further findings suggest pulmonary etiology. We will be happy to perform a PFT in our office if he so desire. Thank you for the opportunity to evaluate Mr. Thayer. Roberto Abraham MD [facility] # [id number]
[2018-03-22 14:30] VITALS: BP 118/81; PULSE 97; RESP 22; TEMP 98
--- NOTE | 2018-03-22 15:04 | PN ---
DATE: 03/22/2018 CARDIOLOGY FOLLOWUP SUBJECTIVE: The patient is ambulating without dyspnea. Edema in the lower extremities resolved. PHYSICAL EXAMINATION: VITAL SIGNS: Blood pressure is 126/71, the heart rate is in the 90s. NECK: Negative JVD. LUNGS: Without rales. HEART: Reveals S1, S2. EXTREMITIES: Without edema. LABORATORY DATA: Hemoglobin is 13. Chemistries: BUN and creatinine are stable. Potassium is 5.3. IMPRESSION: 1. Echocardiogram confirms dilated cardiomyopathy. 2. Congestive heart failure. 3. Pedal edema. 4. History of hypertension. PLAN: Given these findings, the patient is going home on a diuretic as well as an KRYSTAL inhibitor. Followup and instructions have been given to the patient in detail. Bright Holloway MD
--- NOTE | 2018-03-23 05:42 | DS ---
HISTORY OF PRESENT ILLNESS: The patient is an observation case who came in with chest pain. He is comfortable, doing a lot better, no more chest pain. He is eating and is walking around the room. PHYSICAL EXAMINATION: VITAL SIGNS: He has a 98.5 temperature, 95 pulse, 126/71 blood pressure, 18 respiratory rate, 94% O2 sat on room air. HEENT: Head is atraumatic, normocephalic. HEART: Regular rate. LUNGS: Clear to auscultation with decreased breath sounds. ABDOMEN: Soft, obese, nontender. EXTREMITIES: No edema. LABORATORY DATA: He has a 10.2 white count, 13 hemoglobin, 37.9 hematocrit with a 238 platelets. He has 137 sodium, potassium is 5.3. I gave him Kayexalate . BUN 37, creatinine 1.4, GFR is 51, sugar is 92, calcium is 9.9, total bili is 0.7, AST is 25, ALT is 23, alkaline phosphatase 45. All three troponins are less than 0.01. Total protein is 8.6. 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 He will be discharged today to follow up outpatient with his primary care physician, and hopefully he will do well. The patient came with atypical chest pain. Steve Way DO MTDVikki
== END 2018-03-22 14:31 | disposition home or self-care (01) ==
LOC: ED 00:58 → ERH 06:08 → 2RSO 09:35
PROVIDERS: ADMIT Family Medicine; ATTEND Family Medicine
DX: R07.89 Other chest pain (principal); I42.0 Dilated cardiomyopathy; I11.0 Hypertensive heart disease with heart failure; I50.9 Heart failure, unspecified; R73.03 Prediabetes; D64.9 Anemia, unspecified; G89.29 Other chronic pain; Z87.891 Personal history of nicotine dependence; Z82.49 Family history of ischemic heart disease and other diseases of the circulatory system
CPT/HCPCS: 36415; 71045; 80053; 82550; 83036; 83615; 83880; 84484; 85027; 85610; 85730; 93005; 93306; 96374; 99285; G0378; J1940

== ENCOUNTER 2018-04-25 06:15 | Day surgery (SDC) | payer MEDICARE ==
[2018-04-24 06:32] VITALS: BMI 30.5
[2018-04-25] MEDS ORDERED: Lidocaine PF 2% (5 ml) Inj (For Cardiac Arrhy) IV ONE (07:04)
[2018-04-25] MEDS ORDERED: Iodixanol 320 MG/ML 100 ML BOTTLE IV ONE (07:05)
[2018-04-25] MEDS ORDERED: Iohexol 350mgl/ml 50 ML ONE (07:05)
[2018-04-25] MEDS ORDERED: Iodixanol 320 MG/ML 200 ML BOTTLE IV ONE (07:05)
[2018-04-25] MEDS ORDERED: Nitroglycerin 50mg in D5W 0 MG/0 ML BOTTLE IV ONE (07:06)
[2018-04-25 07:20] LABS: BASO # 0.02 K/mm3 (0.0-2.0); BASO % 0.2 % (0.0-3.0); EOS # 0.1 (0.0-0.7); EOS % 1.1 % (1.5-5.0); GRAN # 5.97 (1.4-6.5); GRAN % 67.9 % (50.0-68.0); LYMPH # 2.2 (1.2-3.4); LYMPH % 24.9 % (22.0-35.0); MEAN CORPUSCULAR HEMOGLOBIN 32.4 pg (25.0-35.0); MEAN CORPUSCULAR HGB CONC 34.1 g/dl (31.0-37.0); MEAN PLATELET VOLUME 9.3 fl (7.0-11.0); MONO # 0.5 (0.1-0.6); MONO % 5.9 % (1.0-6.0); RBC 3.18 10^6/uL (3.5-6.1); RED CELL DISTRIBUTION WIDTH 12.4 % (11.5-14.5); WHITE BLOOD COUNT 8.8 10^3/ul (4.5-11.0)
[2018-04-25 07:24] LABS: HEMOGLOBIN 10.3 g/dL (14.0-18.0)
[2018-04-25 07:30] LABS: BLOOD UREA NITROGEN 29 mg/dL (7-21); CALCIUM 9.1 mg/dL (8.4-10.5); GFR AFRICAN-AMERICAN > 60; GFR NON-AFRICAN AMERICAN 55
[2018-04-25 07:33] LABS: PROTHROMBIN TIME 11.8 SECONDS (9.4-12.5)
[2018-04-25 07:34] LABS: INR 1.03 (0.93-1.08); PARTIAL THROMBOPLASTIN TIME 22.5 Seconds (25.1-36.5)
[2018-04-25] MEDS ORDERED: Midazolam 2 MG/2 ML VIAL ONE ×2 (07:55→07:59)
[2018-04-25] MEDS ORDERED: Sodium Chloride 0.9% 1,000 ML IV SCH (08:45)
[2018-04-25 08:57] VITALS: TEMP 97.9
[2018-04-25] MEDS ORDERED: oxyCODONE 30 mg Immediate Release Tab PO STA (09:42)
--- NOTE | 2018-04-25 09:44 | CARDCATH ---
PROCEDURE DATE: 04/25/2018 HISTORY: The patient is a 67-year-old male, who presents with history of CHF. He was found to have a cardiomyopathy on echocardiogram as well as stress test. In addition, the patient complains of occasional chest pain and shortness of breath. A stress test showed ischemic areas in the inferoapical region. A cardiac catheterization was recommended. PROCEDURE: Left heart catheterization with coronary arteriography and left ventriculogram. The right femoral artery was cannulated with a 6-[place] Citizen sheath. There were no complications. I performed moderate sedation, which included the presence of an independent trained observer and assisted in monitoring the patient's level of consciousness and physiologic status. After administration of Versed and fentanyl, my intra service time was 15 minutes. Findings on catheterization revealed left ventricle that contracted normally. Estimated ejection fraction of 60%. His coronary anatomy revealed a right dominant circulation. The RCA revealed diffuse atherosclerosis throughout its course. There is a 50% stenosis in the distal portion of the PDA. The left main artery was calcified without critical lesions. The LAD and diagonal vessels revealed diffuse atherosclerosis without critical lesions. The circumflex artery and obtuse marginal branches revealed intimal irregularities without significant stenoses. Angio-Seal was used to close the femoral artery site. The patient tolerated the procedure well. IMPRESSION: 1. In summary, the procedure revealed normal left ventricular function with an ejection fraction of 60%. 2. Diffuse coronary atherosclerosis including calcification in the coronary tree. 3. There was a 50% stenosis in the distal posterior descending artery of the right coronary artery, which may explain his abnormal stress test. PLAN: Given these findings, the patient's treatment will be daily aspirin. A cardiac risk reduction program will be instituted with the patient as an outpatient. Bright Holloway MD
[2018-04-25] MEDS ORDERED: oxyCODONE 30 mg Immediate Release Tab PO ONE (10:00)
[2018-04-25 11:25] VITALS: RESP 18
[2018-04-25 12:33] VITALS: PULSE 80; O2SAT 98
[2018-04-25 12:34] VITALS: BP 153/78
== END 2018-04-25 15:10 | disposition home or self-care (01) ==
LOC: CATH 06:15
PROVIDERS: ATTEND Internal Medicine Cardiovascular Disease
DX: I25.10 Atherosclerotic heart disease of native coronary artery without angina pectoris (principal); I42.9 Cardiomyopathy, unspecified; I11.0 Hypertensive heart disease with heart failure; I50.9 Heart failure, unspecified; Z86.19 Personal history of other infectious and parasitic diseases
CPT/HCPCS: 36415; 80048; 85025; 85610; 85730; 86850; 86900; 93458; 99152; C1760; C1769; C1894; J1644; J2250; J3010; J7030; Q9966

== ENCOUNTER 2018-05-05 21:04 | Emergency (ER) | payer MEDICARE ==
[2018-05-05 21:38] VITALS: BMI 28.1
[2018-05-05] MEDS ORDERED: Vancomycin 1gm in NS 250ml 1 GM/250 ML BAG IVPB STA (22:26)
[2018-05-05] MEDS ORDERED: Oxycodone/Acetaminophen 5/325 mg Tab PO STA (22:27)
[2018-05-05 22:49] VITALS: TEMP 98
--- NOTE | 2018-05-05 22:58 | ED PDOC ---
Arrival/HPI - General Chief Complaint: Lower Extremity Problem/Injury Time Seen by Provider: 05/05/18 21:56 - History of Present Illness Narrative History of Present Illness (Text): 05/05/18 22:54 PGY-[address] García Pt is a 67 year old male with PMHx HTN, chronic back pain, HIV who presents to ED with a painful, red, swollen L calf. The patient reports that earlier this month he came to [facility] for a swollen R ankle and was subsequently admitted and worked up for CAD/cardiac function. Pt had a cardiac cath done at that time which did show diffuse atherosclerotic coronary disease, but no stents were placed and patient was d/c'd to be treated medically. Pt reports following up with his PCP about two weeks ago at which time he was experiencing tenderness and swelling of his lateral L calf and swelling in the ankle. Pt reports he was given a topical ointment at that time and sent home, but returned today due to worsening pain of his L calf which is now on the medial side and very erythematous and tender to palpation with associated L ankle swelling. Pt reports pain to be localized to L medial calf with no radiation. Patient denies any SOB, chest pain, back pain, pleuritic pain, dizziness, headache, vision changes, eye pain, fevers, chills +L calf pain, erythemia, ankle swelling 05/05/18 22:59 05/05/18 23:04 05/05/18 23:22 (Reynaldo Wilkins) Past Medical History - Infectious Disease Hx of Infectious Diseases: None - Tetanus Immunization Tetanus Immunization: Unknown - Cardiac Hx Hypertension: Yes Hx Pacemaker: No - Pulmonary Hx Respiratory Disorders: No - Neurological Hx Paralysis: No - HEENT Hx HEENT Disorder: No - Renal Hx Renal Disorder: No - Endocrine/Metabolic Hx Endocrine Disorders: No - Hematological/Oncological Hx Blood Transfusions: No - Integumentary Hx Dermatological Disorder: No - Musculoskeletal/Rheumatological Hx Musculoskeletal Disorders: No - Gastrointestinal Hx Gastrointestinal Disorders: No - Genitourinary/Gynecological Hx Genitourinary Disorders: No - Psychiatric Hx Emotional Abuse: No Hx Physical Abuse: No Hx Substance Use: No - Surgical History Hx Cardiac Catheterization: Yes (2 weeks ago) - Anesthesia Hx Anesthesia: No Hx Anesthesia Reactions: No - Suicidal Assessment Feels Threatened In Home Enviroment: No Family/Social History Family/Social History: No Known Family HX Smoking Status: Former Smoker Hx Alcohol Use: No (QUIT 21 YRS AGO) Hx Substance Use: No Allergies/Home Meds Allergies/Adverse Reactions: Allergies No Known Allergies Allergy (Verified 05/05/18 21:38) Home Medications: Home Meds Medication Instructions Recorded Confirmed Enalapril Maleate [Enalapril] 20 mg PO DAILY 12/14/14 04/25/18 Methadone [Methadone HCl] 10 mg PO DAILY 03/21/18 04/25/18 oxyCODONE [oxyCODONE Immediate 30 mg PO TID 03/21/18 04/25/18 Release Tab] Aspirin [Ecotrin] 81 mg PO DAILY 04/24/18 04/25/18 Carvedilol [Coreg] 25 mg PO DAILY 04/24/18 04/25/18 Review of Systems - Review of Systems Constitutional: Normal. absent: Fatigue, Fevers Eyes: Normal. absent: Vision Changes, Photophobia, Eye Pain ENT: Normal. absent: Sore Throat, Rhinorrhea Respiratory: Normal. absent: SOB, Cough, Wheezing Cardiovascular: Edema, Calf Pain, Other (+L medial calf pain). absent: Chest Pain, STERN, Syncope Gastrointestinal: absent: Abdominal Pain, Nausea, Vomiting Musculoskeletal: Back Pain, Neck Pain Skin: Other (+Erythema on L medial calf) Neurological: Normal. absent: Headache, Dizziness, Focal Weakness, Facial Droop Hemo/Lymphatic: Normal. absent: Adenopathy Physical Exam Vital Signs Reviewed: Yes Temperature: Afebrile Blood Pressure: Hypertensive Pulse: Regular Respiratory Rate: Normal Appearance: Positive for: Well-Appearing, Non-Toxic Pain Distress: Mild Mental Status: Positive for: Alert and Oriented X 3. No: Confused, Agitated - Systems Exam Head: Present: Atraumatic, Normocephalic Pupils: Present: PERRL Extroacular Muscles: Present: EOMI Conjunctiva: Present: Normal Mouth: Present: Moist Mucous Membranes Pharnyx: Present: Normal. No: ERYTHEMA, EXUDATE Nose (External): Present: Atraumatic Respiratory/Chest: Present: Clear to Auscultation. No: Respiratory Distress, Accessory Muscle Use, Wheezes Cardiovascular: Present: Regular Rate and Rhythm, Normal S1, S2, Peripheal Pulses Present Abdomen: Present: Normal Bowel Sounds. No: Tenderness, Distention, Peritoneal Signs, Rebound, Guarding Upper Extremity: Present: Normal Inspection, Normal ROM, NORMAL PULSES. No: Cyanosis, Edema Lower Extremity: Present: Edema, CALF TENDERNESS, NORMAL PULSES, Tenderness, Swelling, Other (L ankle edema) Neurological: Present: GCS=15, CN II-XII Intact, Speech Normal, Motor Func Grossly Intact, Normal Sensory Function, Normal Cerebellar Funct, Memory Normal Skin: Present: Warm, Dry, Other (R erythema of L medial calf) Lymphatic: Present: Axillary Adenopathy. No: Inguinal Adenopathy Psychiatric: Present: Alert, Oriented x 3, Normal Insight Vital Signs Temp Pulse Resp BP Pulse Ox 05/05/18 22:47 98.0 F 05/05/18 21:41 91 H 18 164/98 H 98 Medical Decision Making ED Course and Treatment: 05/05/18 23:12 Calf Tenderness- Possible cellulits/ R/O DVT: L Lower extremity doppler, Tib/ Fib X-Ray to r/o acute fracture, IV Vancomycin, CBC, CMP w/ mag/phos, coags, STAT blood cultures No signs of PE or neurological deficits observed clinically, continue to monitor for signs/symptoms 05/05/18 23:16 (Reynaldo Wilkins) 05/05/18 23:30 67 yo male with left leg pain, swelling and redness r/o cellulitis r/o DVT -- Labs -- Xray -- US -- Vancomycin IV Signed out to Dr. Vargas to f/u Xray, US, reevaluate and disposition. ( Raudel García) - Lab Interpretations Lab Results: 05/05/18 22:40 05/05/18 22:40 Lab Results 05/05/18 22:40: Sodium 145, Chloride 109 H, Potassium 4.0, Carbon Dioxide 22, Anion Gap 19, BUN 28 H, Creatinine 1.3, Est GFR ( Amer) > 60, Est GFR ( Non-Af Amer) 55, Random Glucose 84, Calcium 9.9, Phosphorus 4.2, Magnesium 2.0, Total Bilirubin 0.5, AST 25, ALT 19, Alkaline Phosphatase 45, Total Protein 8.1 , Albumin 4.6, Globulin 3.5, Albumin/Globulin Ratio 1.3 05/05/18 22:40: PT 13.0, INR 1.14, APTT 28.3 05/05/18 22:40: WBC 8.6, RBC 3.26 L, Hgb 10.6 L, Hct 31.4 L, MCV 96.3, MCH 32.5 , MCHC 33.8, RDW 12.7, Plt Count 212, MPV 9.2, Gran % 64.1, Lymph % (Auto) 28.7 , [place] % (Auto) 5.7, Eos % (Auto) 1.4 L, Baso % (Auto) 0.1, Gran # 5.48, Lymph # (Auto) 2.5, [place] # (Auto) 0.5, Eos # (Auto) 0.1, Baso # (Auto) 0.01 05/05/18 10:55: pO2 55, VBG pH 7.36, VBG pCO2 40.0, VBG HCO3 22.6, VBG Total CO2 23.8, VBG O2 Sat (Calc) 92.1 H, VBG Base Excess -2.7 L, VBG Potassium 4.0, Sodium 142.0, Chloride 111.0 H, Glucose 78, Lactate 0.7, FiO2 21.0, Venous Blood Potassium 4.0 - RAD Interpretation Radiology Orders: 05/05/18 22:27 DUPLEX LOWER EXTRM VEIN LEFT [US] Stat 05/05/18 22:28 TIBIA FIBULA LEFT [RAD] Stat - Medication Orders Current Medication Orders: Vancomycin HCl (Vancomycin 1gm) 1 gm in 250 mls @ 167 mls/hr IVPB STAT STA PRN Reason: Protocol Stop: 05/05/18 23:55 Last Admin: 05/05/18 22:57 Dose: 167 mls/hr eMAR Start Stop Document 05/05/18 22:57 CNR (Rec: 05/05/18 22:58 CNR [id number]) Intravenous Solution Start Date 05/05/18 Start Time 22:57 End Date 05/06/18 End time 00:27 Total Infusion Time 90 Discontinued Medications Oxycodone/Acetaminophen (Percocet 5/325 Mg Tab) 1 tab PO STAT STA Stop: 05/05/18 22:28 Last Admin: 05/05/18 22:57 Dose: 1 tab MAR Pain Assessment Document 05/05/18 22:57 CNR (Rec: 05/05/18 22:57 CNR [id number]) Pain Reassessment Is this a pain reassessment? No Disposition/Present on Arrival - Present on Arrival Any Indicators Present on Arrival: No History of DVT/PE: No History of Uncontrolled Diabetes: No Urinary Catheter: No History of Decub. Ulcer: No History Surgical Site Infection Following: None - Disposition Have Diagnosis and Disposition been Completed?: Yes Disposition Time: 23:20 - Disposition Diagnosis: Cellulitis Patient Problems: Current Active Problems Problem Status Onset Cellulitis Acute Condition: FAIR Discharge Instructions (ExitCare): Cellulitis (ED) Forms: [employer] (Turkmen)
[2018-05-05 23:05] LABS: VENOUS BLOOD GAS BASE EXCESS -2.7 mmol/L (0.0-2.0); VENOUS BLOOD GAS PO2 55 mm/Hg (30-55); VENOUS BLOOD PH 7.36 (7.32-7.43)
[2018-05-05 23:12] LABS: INR 1.14
[2018-05-05 23:15] LABS: PARTIAL THROMBOPLASTIN TIME 28.3 Seconds
[2018-05-05 23:17] LABS: ALB/GLOB RATIO 1.3 (1.1-1.8); ALBUMIN 4.6 g/dL (3.0-4.8); ALT/SGPT 19 U/L (7-56); AST/SGOT 25 U/L (17-59); BLOOD UREA NITROGEN 28 mg/dL (7-21); CALCIUM 9.9 mg/dL (8.4-10.5); GFR AFRICAN-AMERICAN > 60; GFR NON-AFRICAN AMERICAN 55
[2018-05-05 23:20] LABS: BASO # 0.01 K/mm3 (0.0-2.0); BASO % 0.1 % (0.0-3.0); EOS # 0.1 (0.0-0.7); EOS % 1.4 % (1.5-5.0); GRAN # 5.48 (1.4-6.5); GRAN % 64.1 % (50.0-68.0); HEMOGLOBIN 10.6 g/dL (14.0-18.0); LYMPH # 2.5 (1.2-3.4); LYMPH % 28.7 % (22.0-35.0); MEAN CELL VOLUME 96.3 fl (80.0-105.0); MEAN CORPUSCULAR HEMOGLOBIN 32.5 pg (25.0-35.0); MEAN CORPUSCULAR HGB CONC 33.8 g/dl (31.0-37.0); MEAN PLATELET VOLUME 9.2 fl (7.0-11.0); MONO # 0.5 (0.1-0.6); MONO % 5.7 % (1.0-6.0); RBC 3.26 10^6/uL (3.5-6.1); RED CELL DISTRIBUTION WIDTH 12.7 % (11.5-14.5); WHITE BLOOD COUNT 8.6 10^3/ul (4.5-11.0)
--- NOTE | 2018-05-06 00:04 | ED PDOC ---
Physical Exam Vital Signs Temp Pulse Resp BP Pulse Ox 05/06/18 01:29 86 16 146/84 96 05/05/18 22:47 98.0 F 05/05/18 21:41 91 H 18 164/98 H 98 Medical Decision Making ED Course and Treatment: 05/05/18 23:30 Case endorsed to me by Dr. García pending Tibia Fibula Left X-ray and Duplex Lower Extrem vein left US. Patient presents with history of localized erythema to the left lower leg/calf area with some tenderness. No known fever or chills. No history of trauma. 05/06/18 02:21 Tibia Fibula Left X-ray Impression: As read by me, no acute process. Duplex Lower Extrem vein left US Impression: As read by me, negative DVT. 05/06/18 02:36 Patient was informed results. I advised patient for admission to hospital for further management. Patient however, adamant in not wanting to stay. He states he would prefer antibiotics as outpatient and will follow up with his PMD this week. Given that patient is without fever, or without any elevated WBC, we will honor his wishes, however, with the caveat if there's any fever or worsening redness, patient was advised to return to the Emergency department. Patient in agreement with this. Patient will follow up with his PMD Dr. Way as instructed. - Lab Interpretations Lab Results: 05/05/18 22:40 05/05/18 22:40 Lab Results 05/05/18 22:40: Sodium 145, Chloride 109 H, Potassium 4.0, Carbon Dioxide 22, Anion Gap 19, BUN 28 H, Creatinine 1.3, Est GFR ( Amer) > 60, Est GFR ( Non-Af Amer) 55, Random Glucose 84, Calcium 9.9, Phosphorus 4.2, Magnesium 2.0, Total Bilirubin 0.5, AST 25, ALT 19, Alkaline Phosphatase 45, Total Protein 8.1 , Albumin 4.6, Globulin 3.5, Albumin/Globulin Ratio 1.3 05/05/18 22:40: PT 13.0, INR 1.14, APTT 28.3 05/05/18 22:40: WBC 8.6, RBC 3.26 L, Hgb 10.6 L, Hct 31.4 L, MCV 96.3, MCH 32.5 , MCHC 33.8, RDW 12.7, Plt Count 212, MPV 9.2, Gran % 64.1, Lymph % (Auto) 28.7 , [place] % (Auto) 5.7, Eos % (Auto) 1.4 L, Baso % (Auto) 0.1, Gran # 5.48, Lymph # (Auto) 2.5, [place] # (Auto) 0.5, Eos # (Auto) 0.1, Baso # (Auto) 0.01 05/05/18 10:55: pO2 55, VBG pH 7.36, VBG pCO2 40.0, VBG HCO3 22.6, VBG Total CO2 23.8, VBG O2 Sat (Calc) 92.1 H, VBG Base Excess -2.7 L, VBG Potassium 4.0, Sodium 142.0, Chloride 111.0 H, Glucose 78, Lactate 0.7, FiO2 21.0, Venous Blood Potassium 4.0 - RAD Interpretation Radiology Orders: 05/05/18 22:27 DUPLEX LOWER EXTRM VEIN LEFT [US] Stat 05/05/18 22:28 TIBIA FIBULA LEFT [RAD] Stat - Medication Orders Current Medication Orders: Discontinued Medications Vancomycin HCl (Vancomycin 1gm) 1 gm in 250 mls @ 167 mls/hr IVPB STAT STA PRN Reason: Protocol Stop: 05/05/18 23:55 Last Admin: 05/05/18 22:57 Dose: 167 mls/hr eMAR Start Stop Document 05/05/18 22:57 CNR (Rec: 05/05/18 22:58 CNR [id number]) Intravenous Solution Start Date 05/05/18 Start Time 22:57 End Date 05/06/18 End time 00:27 Total Infusion Time 90 Oxycodone/Acetaminophen (Percocet 5/325 Mg Tab) 1 tab PO STAT STA Stop: 05/05/18 22:28 Last Admin: 05/05/18 22:57 Dose: 1 tab MAR Pain Assessment Document 05/05/18 22:57 CNR (Rec: 05/05/18 22:57 CNR [id number]) Pain Reassessment Is this a pain reassessment? No - Scribe Statement The provider has reviewed the documentation as recorded by the Yonny Camp Provider Scribe Attestation: All medical record entries made by the Scribe were at my direction and personally dictated by me. I have reviewed the chart and agree that the record accurately reflects my personal performance of the history, physical exam, medical decision making, and the department course for this patient. I have also personally directed, reviewed, and agree with the discharge instructions and disposition. Disposition/Present on Arrival - Present on Arrival Any Indicators Present on Arrival: No History of DVT/PE: No History of Uncontrolled Diabetes: No Urinary Catheter: No History of Decub. Ulcer: No History Surgical Site Infection Following: None - Disposition Have Diagnosis and Disposition been Completed?: Yes Diagnosis: Cellulitis Disposition: HOME/ ROUTINE Disposition Time: 02:28 Patient Plan: Discharge Patient Problems: Current Active Problems Problem Status Onset Cellulitis Acute Condition: GOOD Discharge Instructions (ExitCare): Cellulitis (ED) Additional Instructions: Take antibiotics as prescribed/follow up with this week/any worsening symptoms(fever/increased redness or swelling) return to the emergency room Prescriptions: Cephalexin [cephalexin] 500 mg PO TID #21 cap Forms: [employer] (Tr[place]idadian)
[2018-05-06 01:29] VITALS: PULSE 86
[2018-05-06 02:41] VITALS: BP 132/76; RESP 18; O2SAT 99
--- NOTE | 2018-05-06 08:08 | RAD ---
Date of service: 05/05/2018 PROCEDURE: Radiographs of the left tibia and fibula. HISTORY: pain r/o fx COMPARISON: None available. TECHNIQUE: Frontal and lateral views obtained. FINDINGS: BONES: No fracture or destructive lesion. JOINT SPACES: Unremarkable. OTHER FINDINGS: Mild subcutaneous edema varicosities probable medial and proximal lower leg IMPRESSION: No fracture or osseous lesion appreciated. Other findings -as above.
--- NOTE | 2018-05-07 18:10 | US ---
PROCEDURE: Left lower extremity venous US HISTORY: Leg pain and swelling. Evaluate for DVT. PHYSICIAN(S): Bright Mims MD. TECHNIQUE: Duplex sonography and color-flow Doppler with graded compression were used to evaluate the deep venous system of the left lower extremity. FINDINGS: The visualized deep venous system of the left lower extremity is sonographically normal and compressible. Normal wave forms and augmentation are seen. There is no sonographic evidence for deep venous thrombosis in the visualized segments of the left lower extremity. IMPRESSION: 1. No sonographic evidence for deep venous thrombosis in the visualized segments of the left lower extremity.
== END 2018-05-06 02:41 | disposition home or self-care (01) ==
LOC: ED 21:04
DX: L03.116 Cellulitis of left lower limb (principal); I10 Essential (primary) hypertension; Z87.891 Personal history of nicotine dependence